=== PATIENT | female | born 1930 | race Asian ===

== ENCOUNTER 2018-10-14 12:13 | Inpatient (IN) | payer OTHER, MEDICARE ==
[~2018-10-14] VITALS: Ht 154.9 cm; Wt 53.5 kg
[2018-10-14 12:33] VITALS: Ht 154.9 cm; Wt 53.5 kg
--- NOTE | 2018-10-14 14:00 | NUR ---
PT. BIB SON FOR C/O SWELLING AND PAIN TO RIGHT ELBOW X2 DAYS. PER SON, PT. DENIES FALL OR INJURY TO ELBOW. PT. AAOX4, TALKING AND RESPONDING APPROPRIATELY BREATHING NORMAL AND UNLABORED, NOT IN ANY APPARENT DISTRESS AT THIS TIME. CALL LIGHT IN REACH. SON AT BEDSIDE. WILL CONTINUE TO MONITOR.
--- NOTE | 2018-10-14 14:00 | NUR ---
PATIENT AZAR VIGIL, SON AT BEDSIDE TRANSLATING.
--- NOTE | 2018-10-14 14:21 | NUR ---
US AT BEDSIDE
[2018-10-14 14:36] LABS: PLATELET COUNT 198 x10^3mcL (130-400)
[2018-10-14 14:37] LABS: BASOPHIL % 0 % (0-2); RED CELL DISTRIBUTION WIDTH 15.8 % (11.5-14.5)
[2018-10-14 15:14] LABS: CARBON DIOXIDE 25.8 mmol/L (21-32); CHLORIDE SERUM 103 mmol/L (98-107); CREATININE SERUM 1.1 mg/dL (0.6-1.0); GLUCOSE SERUM 109 mg/dL (74-106); POTASSIUM SERUM 3.4 mmol/L (3.5-5.1); SODIUM SERUM 139 mmol/L (136-145)
[2018-10-14 15:23] LABS: ALKALINE PHOSPHATASE 69 U/L (46-116); ALT/SGPT 13 U/L (14-59); AST/SGOT 20 U/L (15-37); BILIRUBIN TOTAL 0.8 mg/dL (0.20-1.00); TOTAL PROTEIN, SERUM 7.2 g/dL (6.4-8.2); URIC ACID 4.1 mg/dL (2.6-6.0)
[2018-10-14 15:26] LABS: ALBUMIN 2.9 g/dL (3.4-5.0)
--- NOTE | 2018-10-14 17:28 | NUR ---
PT. UP TO RESTROOM WITH ASSISTANCE.
[2018-10-14 17:31] LABS: CHOLESTEROL/HDL RATIO 1.7; MAGNESIUM 1.8 mg/dL (1.8-2.4)
--- NOTE | 2018-10-14 17:55 | NUR ---
PT. TOLERATED ROCEPHIN INFUSION WELL, NO ADVERSE REACTION NOTED. TALKING AND RESPONDING APPROPRIEATLY. SON AT BEDSIDE.
[2018-10-14 17:57] LABS: FREE T4 1.3 ng/dL (0.76-1.46); FREE THYROXINE INDEX 3.4 ug/dL (1.4-4.5); T4(THYROXINE) 9.3 ug/dL (4.7-13.3)
--- NOTE | 2018-10-14 18:00 | NUR ---
DINNER TRAY PROVIDED, SON ASSISTING PT. WITH MEAL. NO COMPLAINTS AT THIS TIME. AAOX4. TALKING AND RESPONDING APPROPRIATELY.
[2018-10-14] MEDS ORDERED: LASIX20 MG (18:11)
[2018-10-14] MEDS ORDERED: JANUVIA100 M1 (18:11)
--- NOTE | 2018-10-14 18:25 | NUR ---
REPORT GIVEN TO SHARAD GONSALEZ.
--- NOTE | 2018-10-14 18:36 | NUR ---
PATIENT SON JUDY STATES HE WILL BE BACK LATER TONIGHT. CELL #
--- NOTE | 2018-10-14 18:50 | NUR ---
REPORT GIVEN TO SHARAD GONSALEZ.
[2018-10-14 18:51] LABS: microscopic required? YES; urine erythrocyte TRACE (NEGATIVE)
--- NOTE | 2018-10-14 19:05 | NUR ---
RECEIVED PT FROM ED VIA EWELINA, KOREAN SPEAKING ONLY, A+OX4, NO RESPRIATORY DISTRESS NOTED, COMPLAINING OF R ELBOW PAIN, SWELLING AND REDNESS TO R ELBOW, PLACED ON TELE 14, NSR, PULSES MODERATE AND EQUAL CHIQUITA, EDEMA +4 PITTING BLE, LUNG SOUNDS CTA, TOLERATING RA, BOWEL SOUNDS ACTIVE, VOIDING FREELY PER ER, AMBULATORY WITH ASSIST, IV LAC 20 G SALINE LOCKED, SITE WNL.
--- NOTE | 2018-10-14 19:28 | NUR ---
SHARAD GONSALEZ ASSISTED PT TO BATHROOM AND BACK TO BED, GAIT UNSTEADY, BED ALARM ON, CALL LIGHT WITHIN REACH. PT REQUIRES 1 PERSON ASSISTANCE. ENDORSED CARE TO AURE GONSALEZ.
--- NOTE | 2018-10-14 19:45 | NUR ---
RECEIVED PT IN BED, PT SEEN, ALERT AND ORIENTED X 3 WITH CANTONESE SPEAKING WITH PERIODS OF FORGETFULNESS BUT PT EASILY TO RE-DIRECT AND RE-ORIENT, BREATHING EVEN AND UNLABORED ON ROOM AIR WITH NO RESP DISTRESS NOTED, ON TELE#14 NSR, SL TO LAC, MILD GENERALIZED WEAKNESS, FALL PRECAUTION IN PLACE, BED ALARM ON, NO DISTRESS NOTED, WILL KEEP TO MONITOR.
[2018-10-14 19:49] VITALS: BP 148/67
[2018-10-14 20:50] VITALS: BP 155/61
[2018-10-14] MEDS ORDERED: COZAAR100 MG PO (21:04)
[2018-10-14] MEDS ORDERED: CLOPIDOGREL75 M1 PO (21:04)
[2018-10-14] MEDS ORDERED: SIMVASTATIN20 M1 PO (21:04)
[2018-10-14] MEDS ORDERED: CYCLOBENZAPRINE10 MG PO (21:05)
[2018-10-14] MEDS ORDERED: JANUMET 50-5001 EACH PO (21:05)
--- NOTE | 2018-10-14 22:30 | NUR ---
ALL DUE MEDS GIVEN, PT'S 2100 BLOOD SUGAR- 133 MG/DL WITH NO RISS, CLEOCIN IVPB COMPLETED, NO S&S OF ADVERSE REACTION NOTED.
--- NOTE | 2018-10-15 00:30 | NUR ---
ASSISTED PT TO RESTROOM AND BACK IN BED WITHOUT ANY INCIDENT. BED ALARM ON.
[2018-10-15 05:07] VITALS: BP 152/72
--- NOTE | 2018-10-15 05:32 | NUR ---
PT AWAKE AND RESTING IN BED, AMBULATORY WITH FWW WITH MINIMAL ASSIST, MORNING BLOOD SUGAR-114 MG/DL WITH NO RISS, IVF INFUSING WELL WITH CLEOCIN IVPB, AAO X 3 WITH PERIOD OF FORGETFUL BUT EASILY TO RE-ORIENT AND RE-DIRECT, RT ELBOW STILL REDNESS GÉNESIS, NO DISTRESS NOTED, WILL KEEP TO MONITOR.
[2018-10-15 06:57] LABS: CALCIUM 8.5 mg/dL (8.5-10.1); CARBON DIOXIDE 25.2 mmol/L (21-32); CHLORIDE SERUM 107 mmol/L (98-107); CREATININE SERUM 1.2 mg/dL (0.6-1.0); GLUCOSE SERUM 144 mg/dL (74-106); MAGNESIUM 1.7 mg/dL (1.8-2.4); PHOSPHOROUS 4.1 mg/dL (2.5-4.9); POTASSIUM SERUM 4.3 mmol/L (3.5-5.1); SODIUM SERUM 141 mmol/L (136-145)
[2018-10-15 07:06] LABS: BASOPHIL % 0.4 % (0-2); PLATELET COUNT 169 x10^3mcL (130-400)
[2018-10-15 07:07] LABS: RED CELL DISTRIBUTION WIDTH 16.1 % (11.5-14.5); rbc morphology (normal/abnorm) ABNORMAL (NORMAL)
--- NOTE | 2018-10-15 07:20 | NUR ---
BEDSIDE REPORT GIVEN TO SIOBHAN-RN, ALL QUESTIONS ANSWERED AND CONCERNS ADDRESSED.
--- NOTE | 2018-10-15 08:00 | NUR ---
A/A/OX3; BUT FORGETFUL; WOLOF SPEAKING. TELE#14; SR; HR92. DENIED CHEST PAIN. NO RESP DISTRESS ON RA. REDNESS AND SWELLING TO RT ELBOW SUBSIDING. DENIED PAIN NOW. PITTING EDEMA TO BLE. TRACE TO 1+. GENERAL WEAKNESS. USING WALKER AND WALKED WITH PHYSICAL THERAPIST IN [address]. NEED ASSIST FOR BRP. IVHL'D TO LAC. IV SITE CLEAN. CALL LIGHT IN REACH.
[2018-10-15 09:05] VITALS: BP 146/81
[2018-10-15 14:08] VITALS: BP 155/62
[2018-10-15 14:40] LABS: T3 TOTAL 0.65 ng/mL
--- NOTE | 2018-10-15 15:48 | NUR ---
FOUND PATIENT PULLED IV OUT. SHE SAID THAT SHE MIGHT GO HOME TODAY. SHE PULLED IV OUT BY HERSELF BEFORE GO HOME. OVER NEEDLE CATH INTACT. NO BLEEDING AT IV SITE.
[2018-10-15 16:11] VITALS: BP 155/62
[2018-10-15] MEDS ORDERED: NAPROXEN375 MG PO (16:12)
[2018-10-15] MEDS ORDERED: PROTONIX20 MG PO (16:20)
--- NOTE | 2018-10-15 17:00 | NUR ---
CONDITION STABLE. D/C TO HOME PER ORDER. INSTRUCTION GIVEN TO PATIENT'S SON. PAPER SIGNED BY PATIENT'S SON.
== END 2018-10-15 17:10 | disposition home or self-care (01) | DRG 351 ==
LOC: ED 12:13 → DU 16:29
PROVIDERS: Emergency Medicine; ADMIT Internal Medicine
DX: M70.31 Other bursitis of elbow, right elbow (principal); E44.0 Moderate protein-calorie malnutrition; E11.65 Type 2 diabetes mellitus with hyperglycemia; I11.0 Hypertensive heart disease with heart failure; I16.0 Hypertensive urgency; E87.6 Hypokalemia; D50.9 Iron deficiency anemia, unspecified; M19.011 Primary osteoarthritis, right shoulder; Z68.22 Body mass index [BMI] 22.0-22.9, adult; Z79.84 Long term (current) use of oral hypoglycemic drugs
CPT/HCPCS: 82962; 83880; 84439; 97116-GP; 97530-GP; J0696; J1885; J1940; J2405; J3490; J7040; Q0092